=== PATIENT | female | born 1965 | race Caucasian/White ===

== ENCOUNTER 2017-11-21 12:11 | Emergency (ER) | payer BC, SELFPAY ==
[~2017-11-21] VITALS: Ht 165.1 cm; Wt 87.1 kg
[~2017-11-21 12:11] MED LIST: CEPH500 PO; HYDACE5 PO; SULTRIDS PO
[2017-11-21] MEDS ORDERED: TRIA15CR3 TOP (12:20)
[2017-11-21] MEDS ORDERED: Prednisone20 MG PO (12:20)
== END 2017-11-21 12:32 | disposition home or self-care (01) ==
LOC: ER 12:11
DX: L23.7 Allergic contact dermatitis due to plants, except food (principal); Z79.2 Long term (current) use of antibiotics; Z79.891 Long term (current) use of opiate analgesic; Z79.52 Long term (current) use of systemic steroids; Z79.899 Other long term (current) drug therapy
CPT/HCPCS: 96372; 99283; J3301

== ENCOUNTER 2019-01-30 07:46 | Day surgery (SDC) | payer OTHER ==
[~2019-01-30] VITALS: Ht 165.1 cm; Wt 81.9 kg
[~2019-01-30 07:46] MED LIST changes: +HYDCHL12.5 PO; +LOSARTAN POTAS100 MG PO; +Prednisone20 MG PO; +TELMISARTAN-HC1 EAC1; +TRIA15CR3 TOP
== END 2019-01-30 09:45 | disposition home or self-care (01) ==
LOC: ORSCSDS 07:46
PROVIDERS: Internal Medicine Gastroenterology
PROC: 0DBH8ZX Excision of Cecum, Via Natural or Artificial Opening Endoscopic, Diagnostic (ICD-10-PCS; principal; 2019-01-30 09:00)
DX: Z12.11 Encounter for screening for malignant neoplasm of colon (principal); Z86.010 Personal history of colon polyps; D12.0 Benign neoplasm of cecum; K64.8 Other hemorrhoids; I10 Essential (primary) hypertension; J45.909 Unspecified asthma, uncomplicated; Z79.899 Other long term (current) drug therapy
CPT/HCPCS: 88305; J2704; J7120

== ENCOUNTER → 2019-10-06 | Outpatient (CLI) | payer OTHER ==
[2019-10-06 16:58] LABS: Influenza A Negative (NEGATIVE); Influenza B Negative (NEGATIVE)
== END ==
LOC: LAB 15:20 → LAB SHORT 15:20
PROVIDERS: Family Medicine
DX: R06.02 Shortness of breath (principal); R06.2 Wheezing; R05 Cough
CPT/HCPCS: 87804